=== PATIENT | male | born 1985 | race Caucasian/White ===

== ENCOUNTER 2017-10-23 18:14 | Inpatient (IN) | payer OTHER ==
--- NOTE | 2017-10-23 18:25 | ED Physician Chart ---
Addendum entered and electronically signed by Jadiel Bai 10/24/17 14:29: ED Reassessment (Disposition) - Reassessment Reassessment Condition:: Improved - Aftercare/Follow up Instructions Aftercare/Follow-Up Instructions:: Counseled pt regarding lab results/diagnosis & need follow up, Counseled pt & family regarding lab results/diagnosis & need follow up - Patient Disposition Discharge/Transfer:: Acute Care w/in this hosp Accepting Physician:: Dr. Mendiola Time Called:: 1200 Time Responded:: 12:00 Admitted to:: Telemetry Spoke to:: Dr. Mendiola Admitting Medical Physician:: Dr. Mendiola Condition at Disposition:: Stable, Improved Addendum entered and electronically signed by Jadiel Bai 10/24/17 14:06: ED Labs/Radiology/EKG Results - Lab Results Results: Laboratory Tests 10/23/17 10/23/17 10/23/17 18:35 18:35 18:35 WBC 2.6 L RBC 4.40 Hgb 13.8 Hct 40.2 L MCV 91.3 MCH 31.3 H MCHC Differential 34.3 RDW 14.1 Plt Count 44 L MPV 8.7 Band Neutrophils % 1 Neutrophils (Manual) 52 Lymphocytes 34 Monocytes 12 H Eosinophils 0 Basophils 1 Platelet Estimate PT 10.9 INR 1.05 Sodium 136 Potassium 3.7 Chloride 100 Carbon Dioxide 20.5 L Anion Gap 19.2 H BUN 4 L Creatinine 0.6 L Est GFR ( Amer) > 60.0 Est GFR (Non-Af Amer) > 60.0 BUN/Creatinine Ratio 6.7 Glucose 114 H Whole Bld Lactic Acid Calcium 8.9 Total Bilirubin 1.1 H AST 221 H ALT 74 H Alkaline Phosphatase 78 Creatine Kinase 1091 H CK-MB (CK-2) 13.6 H Troponin I B-Natriuretic Peptide Total Protein 8.4 H Albumin 4.7 Globulin 3.7 Albumin/Globulin Ratio 1.3 Triglycerides 69 Cholesterol 236 H LDL Cholesterol Direct 131 HDL Cholesterol 89 Amylase 42 Lipase 38 Urine Source Urine Color Urine Clarity Urine pH Ur Specific [place] Urine Protein Urine Glucose (UA) Urine Ketones Urine Blood Urine Nitrate Urine Bilirubin Urine Urobilinogen Ur Leukocyte Esterase Urine RBC Urine WBC Ur Epithelial Cells Urine Bacteria Urine Opiates Screen Urine Methadone Screen Ur Barbiturates Screen Ur Tricyclics Screen Ur Phencyclidine Scrn Amphetamines Screen U Methamphetamines Scrn U Benzodiazepines Scrn U Cocaine Metab Screen U Cannabinoids Screen Ethyl Alcohol 625 H 10/23/17 10/23/17 10/23/17 18:35 18:35 18:35 WBC RBC Hgb Hct MCV MCH MCHC Differential RDW Plt Count MPV Band Neutrophils % Neutrophils (Manual) Lymphocytes Monocytes Eosinophils Basophils Platelet Estimate PT INR Sodium Potassium Chloride Carbon Dioxide Anion Gap BUN Creatinine Est GFR ( Amer) Est GFR (Non-Af Amer) BUN/Creatinine Ratio Glucose Whole Bld Lactic Acid 2.97 H* Calcium Total Bilirubin AST ALT Alkaline Phosphatase Creatine Kinase CK-MB (CK-2) Troponin I 0.01 B-Natriuretic Peptide < 5.0 L Total Protein Albumin Globulin Albumin/Globulin Ratio Triglycerides Cholesterol LDL Cholesterol Direct HDL Cholesterol Amylase Lipase Urine Source Urine Color Urine Clarity Urine pH Ur Specific [place] Urine Protein Urine Glucose (UA) Urine Ketones Urine Blood Urine Nitrate Urine Bilirubin Urine Urobilinogen Ur Leukocyte Esterase Urine RBC Urine WBC Ur Epithelial Cells Urine Bacteria Urine Opiates Screen Urine Methadone Screen Ur Barbiturates Screen Ur Tricyclics Screen Ur Phencyclidine Scrn Amphetamines Screen U Methamphetamines Scrn U Benzodiazepines Scrn U Cocaine Metab Screen U Cannabinoids Screen Ethyl Alcohol 10/23/17 10/23/17 10/23/17 19:00 19:00 21:35 WBC RBC Hgb Hct MCV MCH MCHC Differential RDW Plt Count MPV Band Neutrophils % Neutrophils (Manual) Lymphocytes Monocytes Eosinophils Basophils Platelet Estimate PT INR Sodium Potassium Chloride Carbon Dioxide Anion Gap BUN Creatinine Est GFR ( Amer) Est GFR (Non-Af Amer) BUN/Creatinine Ratio Glucose Whole Bld Lactic Acid 2.05 H* Calcium Total Bilirubin AST ALT Alkaline Phosphatase Creatine Kinase CK-MB (CK-2) Troponin I B-Natriuretic Peptide Total Protein Albumin Globulin Albumin/Globulin Ratio Triglycerides Cholesterol LDL Cholesterol Direct HDL Cholesterol Amylase Lipase Urine Source CLEAN C Urine Color YELLOW Urine Clarity CLEAR Urine pH 6.5 Ur Specific [place] <= 1.005 Urine Protein 30 H Urine Glucose (UA) NEGATIVE Urine Ketones NEGATIVE Urine Blood SMALL H Urine Nitrate NEGATIVE Urine Bilirubin NEGATIVE Urine Urobilinogen 0.2 Ur Leukocyte Esterase NEGATIVE Urine RBC 0-2 H Urine WBC 0-2 Ur Epithelial Cells OCCASIONAL Urine Bacteria NONE SEEN Urine Opiates Screen NEGATIVE Urine Methadone Screen NEGATIVE Ur Barbiturates Screen NEGATIVE Ur Tricyclics Screen NEGATIVE Ur Phencyclidine Scrn NEGATIVE Amphetamines Screen NEGATIVE U Methamphetamines Scrn NEGATIVE U Benzodiazepines Scrn POSITIVE H U Cocaine Metab Screen NEGATIVE U Cannabinoids Screen NEGATIVE Ethyl Alcohol 10/23/17 10/24/17 23:10 06:16 WBC 2.2 L* RBC 4.39 Hgb 13.7 Hct 40.5 L MCV 92.2 MCH 31.3 H MCHC Differential 33.9 RDW 14.2 Plt Count 43 L MPV 7.7 Band Neutrophils % 2 Neutrophils (Manual) 45 Lymphocytes 41 Monocytes 10 Eosinophils 2 Basophils Platelet Estimate DECREASED PLATELETS PT INR Sodium Potassium Chloride Carbon Dioxide Anion Gap BUN Creatinine Est GFR ( Amer) Est GFR (Non-Af Amer) BUN/Creatinine Ratio Glucose Whole Bld Lactic Acid Calcium Total Bilirubin AST ALT Alkaline Phosphatase Creatine Kinase CK-MB (CK-2) Troponin I B-Natriuretic Peptide Total Protein Albumin Globulin Albumin/Globulin Ratio Triglycerides Cholesterol LDL Cholesterol Direct HDL Cholesterol Amylase Lipase Urine Source Urine Color Urine Clarity Urine pH Ur Specific [place] Urine Protein Urine Glucose (UA) Urine Ketones Urine Blood Urine Nitrate Urine Bilirubin Urine Urobilinogen Ur Leukocyte Esterase Urine RBC Urine WBC Ur Epithelial Cells Urine Bacteria Urine Opiates Screen Urine Methadone Screen Ur Barbiturates Screen Ur Tricyclics Screen Ur Phencyclidine Scrn Amphetamines Screen U Methamphetamines Scrn U Benzodiazepines Scrn U Cocaine Metab Screen U Cannabinoids Screen Ethyl Alcohol 360 H - EKG Interpretations EKG Time:: 19:49 Rate & Rhythm: 85; NSR Comments:: non-specific st-t changes Addendum entered and electronically signed by Jadiel Bai 10/24/17 13:16: ED Reassessment (Disposition) - Reassessment Reassessment Condition:: Improved - Diagnosis Diagnosis:: Alcohol Intoxication; Substance Abuse; Leukopenia; Sepsis; AMS; ALOC; Alcoholism Addendum entered and electronically signed by Jadiel Bai 10/24/17 13:15: ED Labs/Radiology/EKG Results - Lab Results Results: Laboratory Tests 10/23/17 10/23/17 10/23/17 18:35 18:35 18:35 WBC 2.6 L RBC 4.40 Hgb 13.8 Hct 40.2 L MCV 91.3 MCH 31.3 H MCHC Differential 34.3 RDW 14.1 Plt Count 44 L MPV 8.7 Band Neutrophils % 1 Neutrophils (Manual) 52 Lymphocytes 34 Monocytes 12 H Eosinophils 0 Basophils 1 Platelet Estimate PT 10.9 INR 1.05 Sodium 136 Potassium 3.7 Chloride 100 Carbon Dioxide 20.5 L Anion Gap 19.2 H BUN 4 L Creatinine 0.6 L Est GFR ( Amer) > 60.0 Est GFR (Non-Af Amer) > 60.0 BUN/Creatinine Ratio 6.7 Glucose 114 H Whole Bld Lactic Acid Calcium 8.9 Total Bilirubin 1.1 H AST 221 H ALT 74 H Alkaline Phosphatase 78 Creatine Kinase 1091 H CK-MB (CK-2) 13.6 H Troponin I B-Natriuretic Peptide Total Protein 8.4 H Albumin 4.7 Globulin 3.7 Albumin/Globulin Ratio 1.3 Triglycerides 69 Cholesterol 236 H LDL Cholesterol Direct 131 HDL Cholesterol 89 Amylase 42 Lipase 38 Urine Source Urine Color Urine Clarity Urine pH Ur Specific [place] Urine Protein Urine Glucose (UA) Urine Ketones Urine Blood Urine Nitrate Urine Bilirubin Urine Urobilinogen Ur Leukocyte Esterase Urine RBC Urine WBC Ur Epithelial Cells Urine Bacteria Urine Opiates Screen Urine Methadone Screen Ur Barbiturates Screen Ur Tricyclics Screen Ur Phencyclidine Scrn Amphetamines Screen U Methamphetamines Scrn U Benzodiazepines Scrn U Cocaine Metab Screen U Cannabinoids Screen Ethyl Alcohol 625 H 10/23/17 10/23/17 10/23/17 18:35 18:35 18:35 WBC RBC Hgb Hct MCV MCH MCHC Differential RDW Plt Count MPV Band Neutrophils % Neutrophils (Manual) Lymphocytes Monocytes Eosinophils Basophils Platelet Estimate PT INR Sodium Potassium Chloride Carbon Dioxide Anion Gap BUN Creatinine Est GFR ( Amer) Est GFR (Non-Af Amer) BUN/Creatinine Ratio Glucose Whole Bld Lactic Acid 2.97 H* Calcium Total Bilirubin AST ALT Alkaline Phosphatase Creatine Kinase CK-MB (CK-2) Troponin I 0.01 B-Natriuretic Peptide < 5.0 L Total Protein Albumin Globulin Albumin/Globulin Ratio Triglycerides Cholesterol LDL Cholesterol Direct HDL Cholesterol Amylase Lipase Urine Source Urine Color Urine Clarity Urine pH Ur Specific [place] Urine Protein Urine Glucose (UA) Urine Ketones Urine Blood Urine Nitrate Urine Bilirubin Urine Urobilinogen Ur Leukocyte Esterase Urine RBC Urine WBC Ur Epithelial Cells Urine Bacteria Urine Opiates Screen Urine Methadone Screen Ur Barbiturates Screen Ur Tricyclics Screen Ur Phencyclidine Scrn Amphetamines Screen U Methamphetamines Scrn U Benzodiazepines Scrn U Cocaine Metab Screen U Cannabinoids Screen Ethyl Alcohol 10/23/17 10/23/17 10/23/17 19:00 19:00 21:35 WBC RBC Hgb Hct MCV MCH MCHC Differential RDW Plt Count MPV Band Neutrophils % Neutrophils (Manual) Lymphocytes Monocytes Eosinophils Basophils Platelet Estimate PT INR Sodium Potassium Chloride Carbon Dioxide Anion Gap BUN Creatinine Est GFR ( Amer) Est GFR (Non-Af Amer) BUN/Creatinine Ratio Glucose Whole Bld Lactic Acid 2.05 H* Calcium Total Bilirubin AST ALT Alkaline Phosphatase Creatine Kinase CK-MB (CK-2) Troponin I B-Natriuretic Peptide Total Protein Albumin Globulin Albumin/Globulin Ratio Triglycerides Cholesterol LDL Cholesterol Direct HDL Cholesterol Amylase Lipase Urine Source CLEAN C Urine Color YELLOW Urine Clarity CLEAR Urine pH 6.5 Ur Specific [place] <= 1.005 Urine Protein 30 H Urine Glucose (UA) NEGATIVE Urine Ketones NEGATIVE Urine Blood SMALL H Urine Nitrate NEGATIVE Urine Bilirubin NEGATIVE Urine Urobilinogen 0.2 Ur Leukocyte Esterase NEGATIVE Urine RBC 0-2 H Urine WBC 0-2 Ur Epithelial Cells OCCASIONAL Urine Bacteria NONE SEEN Urine Opiates Screen NEGATIVE Urine Methadone Screen NEGATIVE Ur Barbiturates Screen NEGATIVE Ur Tricyclics Screen NEGATIVE Ur Phencyclidine Scrn NEGATIVE Amphetamines Screen NEGATIVE U Methamphetamines Scrn NEGATIVE U Benzodiazepines Scrn POSITIVE H U Cocaine Metab Screen NEGATIVE U Cannabinoids Screen NEGATIVE Ethyl Alcohol 10/23/17 10/24/17 23:10 06:16 WBC 2.2 L* RBC 4.39 Hgb 13.7 Hct 40.5 L MCV 92.2 MCH 31.3 H MCHC Differential 33.9 RDW 14.2 Plt Count 43 L MPV 7.7 Band Neutrophils % 2 Neutrophils (Manual) 45 Lymphocytes 41 Monocytes 10 Eosinophils 2 Basophils Platelet Estimate DECREASED PLATELETS PT INR Sodium Potassium Chloride Carbon Dioxide Anion Gap BUN Creatinine Est GFR ( Amer) Est GFR (Non-Af Amer) BUN/Creatinine Ratio Glucose Whole Bld Lactic Acid Calcium Total Bilirubin AST ALT Alkaline Phosphatase Creatine Kinase CK-MB (CK-2) Troponin I B-Natriuretic Peptide Total Protein Albumin Globulin Albumin/Globulin Ratio Triglycerides Cholesterol LDL Cholesterol Direct HDL Cholesterol Amylase Lipase Urine Source Urine Color Urine Clarity Urine pH Ur Specific [place] Urine Protein Urine Glucose (UA) Urine Ketones Urine Blood Urine Nitrate Urine Bilirubin Urine Urobilinogen Ur Leukocyte Esterase Urine RBC Urine WBC Ur Epithelial Cells Urine Bacteria Urine Opiates Screen Urine Methadone Screen Ur Barbiturates Screen Ur Tricyclics Screen Ur Phencyclidine Scrn Amphetamines Screen U Methamphetamines Scrn U Benzodiazepines Scrn U Cocaine Metab Screen U Cannabinoids Screen Ethyl Alcohol 360 H Comments:: ETOH: 625/360; WBC: 2.2; LA: elevated; Elevated LFTs; UDS: + Benzodiazepines Addendum entered and electronically signed by Jadiel Bai 10/24/17 13:09: ED Labs/Radiology/EKG Results - Lab Results Results: Laboratory Tests 10/23/17 10/23/17 10/23/17 18:35 18:35 18:35 WBC 2.6 L RBC 4.40 Hgb 13.8 Hct 40.2 L MCV 91.3 MCH 31.3 H MCHC Differential 34.3 RDW 14.1 Plt Count 44 L MPV 8.7 Band Neutrophils % 1 Neutrophils (Manual) 52 Lymphocytes 34 Monocytes 12 H Eosinophils 0 Basophils 1 Platelet Estimate PT 10.9 INR 1.05 Sodium 136 Potassium 3.7 Chloride 100 Carbon Dioxide 20.5 L Anion Gap 19.2 H BUN 4 L Creatinine 0.6 L Est GFR ( Amer) > 60.0 Est GFR (Non-Af Amer) > 60.0 BUN/Creatinine Ratio 6.7 Glucose 114 H Whole Bld Lactic Acid Calcium 8.9 Total Bilirubin 1.1 H AST 221 H ALT 74 H Alkaline Phosphatase 78 Creatine Kinase 1091 H CK-MB (CK-2) 13.6 H Troponin I B-Natriuretic Peptide Total Protein 8.4 H Albumin 4.7 Globulin 3.7 Albumin/Globulin Ratio 1.3 Triglycerides 69 Cholesterol 236 H LDL Cholesterol Direct 131 HDL Cholesterol 89 Amylase 42 Lipase 38 Urine Source Urine Color Urine Clarity Urine pH Ur Specific [place] Urine Protein Urine Glucose (UA) Urine Ketones Urine Blood Urine Nitrate Urine Bilirubin Urine Urobilinogen Ur Leukocyte Esterase Urine RBC Urine WBC Ur Epithelial Cells Urine Bacteria Urine Opiates Screen Urine Methadone Screen Ur Barbiturates Screen Ur Tricyclics Screen Ur Phencyclidine Scrn Amphetamines Screen U Methamphetamines Scrn U Benzodiazepines Scrn U Cocaine Metab Screen U Cannabinoids Screen Ethyl Alcohol 625 H 10/23/17 10/23/17 10/23/17 18:35 18:35 18:35 WBC RBC Hgb Hct MCV MCH MCHC Differential RDW Plt Count MPV Band Neutrophils % Neutrophils (Manual) Lymphocytes Monocytes Eosinophils Basophils Platelet Estimate PT INR Sodium Potassium Chloride Carbon Dioxide Anion Gap BUN Creatinine Est GFR ( Amer) Est GFR (Non-Af Amer) BUN/Creatinine Ratio Glucose Whole Bld Lactic Acid 2.97 H* Calcium Total Bilirubin AST ALT Alkaline Phosphatase Creatine Kinase CK-MB (CK-2) Troponin I 0.01 B-Natriuretic Peptide < 5.0 L Total Protein Albumin Globulin Albumin/Globulin Ratio Triglycerides Cholesterol LDL Cholesterol Direct HDL Cholesterol Amylase Lipase Urine Source Urine Color Urine Clarity Urine pH Ur Specific [place] Urine Protein Urine Glucose (UA) Urine Ketones Urine Blood Urine Nitrate Urine Bilirubin Urine Urobilinogen Ur Leukocyte Esterase Urine RBC Urine WBC Ur Epithelial Cells Urine Bacteria Urine Opiates Screen Urine Methadone Screen Ur Barbiturates Screen Ur Tricyclics Screen Ur Phencyclidine Scrn Amphetamines Screen U Methamphetamines Scrn U Benzodiazepines Scrn U Cocaine Metab Screen U Cannabinoids Screen Ethyl Alcohol 10/23/17 10/23/17 10/23/17 19:00 19:00 21:35 WBC RBC Hgb Hct MCV MCH MCHC Differential RDW Plt Count MPV Band Neutrophils % Neutrophils (Manual) Lymphocytes Monocytes Eosinophils Basophils Platelet Estimate PT INR Sodium Potassium Chloride Carbon Dioxide Anion Gap BUN Creatinine Est GFR ( Amer) Est GFR (Non-Af Amer) BUN/Creatinine Ratio Glucose Whole Bld Lactic Acid 2.05 H* Calcium Total Bilirubin AST ALT Alkaline Phosphatase Creatine Kinase CK-MB (CK-2) Troponin I B-Natriuretic Peptide Total Protein Albumin Globulin Albumin/Globulin Ratio Triglycerides Cholesterol LDL Cholesterol Direct HDL Cholesterol Amylase Lipase Urine Source CLEAN C Urine Color YELLOW Urine Clarity CLEAR Urine pH 6.5 Ur Specific [place] <= 1.005 Urine Protein 30 H Urine Glucose (UA) NEGATIVE Urine Ketones NEGATIVE Urine Blood SMALL H Urine Nitrate NEGATIVE Urine Bilirubin NEGATIVE Urine Urobilinogen 0.2 Ur Leukocyte Esterase NEGATIVE Urine RBC 0-2 H Urine WBC 0-2 Ur Epithelial Cells OCCASIONAL Urine Bacteria NONE SEEN Urine Opiates Screen NEGATIVE Urine Methadone Screen NEGATIVE Ur Barbiturates Screen NEGATIVE Ur Tricyclics Screen NEGATIVE Ur Phencyclidine Scrn NEGATIVE Amphetamines Screen NEGATIVE U Methamphetamines Scrn NEGATIVE U Benzodiazepines Scrn POSITIVE H U Cocaine Metab Screen NEGATIVE U Cannabinoids Screen NEGATIVE Ethyl Alcohol 10/23/17 10/24/17 23:10 06:16 WBC 2.2 L* RBC 4.39 Hgb 13.7 Hct 40.5 L MCV 92.2 MCH 31.3 H MCHC Differential 33.9 RDW 14.2 Plt Count 43 L MPV 7.7 Band Neutrophils % 2 Neutrophils (Manual) 45 Lymphocytes 41 Monocytes 10 Eosinophils 2 Basophils Platelet Estimate DECREASED PLATELETS PT INR Sodium Potassium Chloride Carbon Dioxide Anion Gap BUN Creatinine Est GFR ( Amer) Est GFR (Non-Af Amer) BUN/Creatinine Ratio Glucose Whole Bld Lactic Acid Calcium Total Bilirubin AST ALT Alkaline Phosphatase Creatine Kinase CK-MB (CK-2) Troponin I B-Natriuretic Peptide Total Protein Albumin Globulin Albumin/Globulin Ratio Triglycerides Cholesterol LDL Cholesterol Direct HDL Cholesterol Amylase Lipase Urine Source Urine Color Urine Clarity Urine pH Ur Specific [place] Urine Protein Urine Glucose (UA) Urine Ketones Urine Blood Urine Nitrate Urine Bilirubin Urine Urobilinogen Ur Leukocyte Esterase Urine RBC Urine WBC Ur Epithelial Cells Urine Bacteria Urine Opiates Screen Urine Methadone Screen Ur Barbiturates Screen Ur Tricyclics Screen Ur Phencyclidine Scrn Amphetamines Screen U Methamphetamines Scrn U Benzodiazepines Scrn U Cocaine Metab Screen U Cannabinoids Screen Ethyl Alcohol 360 H - Radiology Results Comments:: NAD; no acute Fx/Dislocations Original Note: ED Chief Complaint/HPI - Patient Information Date Seen:: 10/23/17 Time Seen:: 18:10 Chief Complaint:: AMS History of Present Illness:: onset x 3 hours of AMS and ALOC; [place] Police who called EMS to take pt to ER; pt admits to Abdominal Pain; no report of H/As, LOC , S/T, neck pain, cough, C/P, SOB, A/N/V/D/C, fever, chills, or urinary s/s Allergies:: Allergies Allergy/AdvReac Type Severity Reaction Status Date / Time No Known Allergies Allergy Verified 05/24/16 23:27 Historian:: Patient, EMS Review:: Nurse's Note Reviewed, Old Chart Reviewed, EMS run form Reviewed <Jadiel Bai - Last Filed: 10/24/17 14:28> - Patient Information History of Present Illness:: Patient was noticed to have right hand pain with swelling and numbness on the dorsal side. Patient also had trouble flexing first 3 digits. Allergies:: Allergies Allergy/AdvReac Type Severity Reaction Status Date / Time No Known Allergies Allergy Verified 05/24/16 23:27 <Demetrio Dunn - Last Filed: 10/24/17 14:37> ED Review of Systems - Review of Systems General/Constitutional: No fever, No chills, No weight loss, Weakness, No diaphoresis, No edema, No loss of appetite Skin: No skin lesions, No rash, No bruising Head: No headache, No light-headedness Eyes: No loss of vision, No pain, No diplopia ENT: No earache, No nasal drainage, No sore throat, No tinnitus Neck: No neck pain, No swelling, No thyromegaly, No stiffness, No mass noted Cardio Vascular: No chest pain, No palpitations, No PND, No orthopnea, No edema Pulmonary: No SOB, No cough, No sputum, No wheezing GI: No nausea, No vomiting, No diarrhea, No pain, No melena, No hematochezia, No constipation, No hematemesis G/U: No dysuria, No frequency, No hematuria, No nacturia Musculoskeletal: No bone or joint pain, No back pain, No muscle pain Endocrine: No polyuria, No polydipsia Psychiatric: No prior psych history, No depression, No anxiety, No suicidal ideation, No homicidal ideation, No auditory hallucination, No visual hallucination Hematopoietic: No bruising, No lymphadenopathy Allergic/Immuno: No urticaria, No angioedema Neurological: No syncope, No focal symptoms, Weakness, No paresthesia, No headache, No seizure, No dizziness, Confusion, No vertigo <Jadiel Bai - Last Filed: 10/24/17 14:28> ED Past Medical History - Past Medical History Obtainable: Yes Past Medical History: No significant medical hx Family History: HTN Social History: Smoker, Alcohol, No Drug Use, Single Surgical History: None Psychiatricy History: None Medication: Reviewed <Jadiel Bai - Last Filed: 10/24/17 14:28> Family Medical History - Family Member Mother History Unknown: Yes <Jadiel Bai Last Filed: 10/24/17 14:28> ED Physical Exam - Physical Examination General/Constitutional: Awake, Well-developed, well-nourished, Alert, No distress, GCS 15, Non-toxic appearing, Ambulatory Head: Atraumatic Eyes: Lids, conjuctiva normal, PERRL, EOMI Skin: Nl inspection, No rash, No skin lesions, No ecchymosis, Well hydrated, No lymphadenopathy ENMT: External ears, nose nl, TM canals nl, Nasal exam nl, Lips, teeth, gums nl , Oropharynx nl, Tonsils nl Neck: Nontender, Full ROM w/o pain, No JVD, No nuchal rigidity, No bruit, No mass, No stridor Respiratory: Nl effort/Exclusion, Clear to Auscultation, No Wheeze/Rhonchi/Rales Cardio Vascular: RRR, No murmur, gallop, rubs, NL S1 S2, Carotid/Femoral/Distal pulses equal bilaterally GI: No tenderness/rebounding/guarding, No organomegaly, No hernia, Normal BS's, Nondistended, No mass/bruits, No McBurney tenderness Other GI comments:: no pulsatile masses; good BS : No CVA tenderness Extremities: No tenderness or effusion, Full ROM, normal strength in all extremities, No edema, Normal digits & nails Neuro/Psych: Alert/oriented, DTR's symmetric, Normal sensory exam, Normal motor strength, Judgement/insight normal, Mood normal, Normal gait, No focal deficits Misc: Normal back, No paraspinal tenderness <Jadiel Bai - Last Filed: 10/24/17 14:28> ED Labs/Radiology/EKG Results - Lab Results Results: Laboratory Tests 10/23/17 10/23/17 10/23/17 18:35 18:35 18:35 WBC 2.6 L RBC 4.40 Hgb 13.8 Hct 40.2 L MCV 91.3 MCH 31.3 H MCHC Differential 34.3 RDW 14.1 Plt Count 44 L MPV 8.7 Band Neutrophils % 1 Neutrophils (Manual) 52 Lymphocytes 34 Monocytes 12 H Eosinophils 0 Basophils 1 Platelet Estimate PT 10.9 INR 1.05 Sodium 136 Potassium 3.7 Chloride 100 Carbon Dioxide 20.5 L Anion Gap 19.2 H BUN 4 L Creatinine 0.6 L Est GFR ( Amer) > 60.0 Est GFR (Non-Af Amer) > 60.0 BUN/Creatinine Ratio 6.7 Glucose 114 H Whole Bld Lactic Acid Calcium 8.9 Total Bilirubin 1.1 H AST 221 H ALT 74 H Alkaline Phosphatase 78 Creatine Kinase 1091 H CK-MB (CK-2) 13.6 H Troponin I B-Natriuretic Peptide Total Protein 8.4 H Albumin 4.7 Globulin 3.7 Albumin/Globulin Ratio 1.3 Triglycerides 69 Cholesterol 236 H LDL Cholesterol Direct 131 HDL Cholesterol 89 Amylase 42 Lipase 38 Urine Source Urine Color Urine Clarity Urine pH Ur Specific [place] Urine Protein Urine Glucose (UA) Urine Ketones Urine Blood Urine Nitrate Urine Bilirubin Urine Urobilinogen Ur Leukocyte Esterase Urine RBC Urine WBC Ur Epithelial Cells Urine Bacteria Urine Opiates Screen Urine Methadone Screen Ur Barbiturates Screen Ur Tricyclics Screen Ur Phencyclidine Scrn Amphetamines Screen U Methamphetamines Scrn U Benzodiazepines Scrn U Cocaine Metab Screen U Cannabinoids Screen Ethyl Alcohol 625 H 10/23/17 10/23/17 10/23/17 18:35 18:35 18:35 WBC RBC Hgb Hct MCV MCH MCHC Differential RDW Plt Count MPV Band Neutrophils % Neutrophils (Manual) Lymphocytes Monocytes Eosinophils Basophils Platelet Estimate PT INR Sodium Potassium Chloride Carbon Dioxide Anion Gap BUN Creatinine Est GFR ( Amer) Est GFR (Non-Af Amer) BUN/Creatinine Ratio Glucose Whole Bld Lactic Acid 2.97 H* Calcium Total Bilirubin AST ALT Alkaline Phosphatase Creatine Kinase CK-MB (CK-2) Troponin I 0.01 B-Natriuretic Peptide < 5.0 L Total Protein Albumin Globulin Albumin/Globulin Ratio Triglycerides Cholesterol LDL Cholesterol Direct HDL Cholesterol Amylase Lipase Urine Source Urine Color Urine Clarity Urine pH Ur Specific [place] Urine Protein Urine Glucose (UA) Urine Ketones Urine Blood Urine Nitrate Urine Bilirubin Urine Urobilinogen Ur Leukocyte Esterase Urine RBC Urine WBC Ur Epithelial Cells Urine Bacteria Urine Opiates Screen Urine Methadone Screen Ur Barbiturates Screen Ur Tricyclics Screen Ur Phencyclidine Scrn Amphetamines Screen U Methamphetamines Scrn U Benzodiazepines Scrn U Cocaine Metab Screen U Cannabinoids Screen Ethyl Alcohol 10/23/17 10/23/17 10/23/17 19:00 19:00 21:35 WBC RBC Hgb Hct MCV MCH MCHC Differential RDW Plt Count MPV Band Neutrophils % Neutrophils (Manual) Lymphocytes Monocytes Eosinophils Basophils Platelet Estimate PT INR Sodium Potassium Chloride Carbon Dioxide Anion Gap BUN Creatinine Est GFR ( Amer) Est GFR (Non-Af Amer) BUN/Creatinine Ratio Glucose Whole Bld Lactic Acid 2.05 H* Calcium Total Bilirubin AST ALT Alkaline Phosphatase Creatine Kinase CK-MB (CK-2) Troponin I B-Natriuretic Peptide Total Protein Albumin Globulin Albumin/Globulin Ratio Triglycerides Cholesterol LDL Cholesterol Direct HDL Cholesterol Amylase Lipase Urine Source CLEAN C Urine Color YELLOW Urine Clarity CLEAR Urine pH 6.5 Ur Specific [place] <= 1.005 Urine Protein 30 H Urine Glucose (UA) NEGATIVE Urine Ketones NEGATIVE Urine Blood SMALL H Urine Nitrate NEGATIVE Urine Bilirubin NEGATIVE Urine Urobilinogen 0.2 Ur Leukocyte Esterase NEGATIVE Urine RBC 0-2 H Urine WBC 0-2 Ur Epithelial Cells OCCASIONAL Urine Bacteria NONE SEEN Urine Opiates Screen NEGATIVE Urine Methadone Screen NEGATIVE Ur Barbiturates Screen NEGATIVE Ur Tricyclics Screen NEGATIVE Ur Phencyclidine Scrn NEGATIVE Amphetamines Screen NEGATIVE U Methamphetamines Scrn NEGATIVE U Benzodiazepines Scrn POSITIVE H U Cocaine Metab Screen NEGATIVE U Cannabinoids Screen NEGATIVE Ethyl Alcohol 10/23/17 23:10 WBC 2.2 L* RBC 4.39 Hgb 13.7 Hct 40.5 L MCV 92.2 MCH 31.3 H MCHC Differential 33.9 RDW 14.2 Plt Count 43 L MPV 7.7 Band Neutrophils % 2 Neutrophils (Manual) 45 Lymphocytes 41 Monocytes 10 Eosinophils 2 Basophils Platelet Estimate DECREASED PLATELETS PT INR Sodium Potassium Chloride Carbon Dioxide Anion Gap BUN Creatinine Est GFR ( Amer) Est GFR (Non-Af Amer) BUN/Creatinine Ratio Glucose Whole Bld Lactic Acid Calcium Total Bilirubin AST ALT Alkaline Phosphatase Creatine Kinase CK-MB (CK-2) Troponin I B-Natriuretic Peptide Total Protein Albumin Globulin Albumin/Globulin Ratio Triglycerides Cholesterol LDL Cholesterol Direct HDL Cholesterol Amylase Lipase Urine Source Urine Color Urine Clarity Urine pH Ur Specific [place] Urine Protein Urine Glucose (UA) Urine Ketones Urine Blood Urine Nitrate Urine Bilirubin Urine Urobilinogen Ur Leukocyte Esterase Urine RBC Urine WBC Ur Epithelial Cells Urine Bacteria Urine Opiates Screen Urine Methadone Screen Ur Barbiturates Screen Ur Tricyclics Screen Ur Phencyclidine Scrn Amphetamines Screen U Methamphetamines Scrn U Benzodiazepines Scrn U Cocaine Metab Screen U Cannabinoids Screen Ethyl Alcohol - Radiology Results Results: Right hand X ray: no fracture <Demetrio Dunn - Last Filed: 10/24/17 14:37> ED Assessment - Assessment General Assessment: Due to leukopenia and elevated lactic acid despite NS 2L IV bolus, empirical Levofloxacin 750mg IV was given. Repeat ETOH level remained high. Patient was not safe for discharge. Dr. Bai resumed care on 10/24/17 at 07:00 Assessment/Comments:: Right hand X ray <Demetrio Dunn - Last Filed: 10/24/17 14:37> ED Septic Shock - . Is Septic Shock (SBP<90, OR Lactate>4 mmol\L) present?: No <Jadiel Bai - Last Filed: 10/24/17 14:28> ED Discharge Plan <Jadiel Bai - Last Filed: 10/24/17 14:28> <Demetrio Dunn - Last Filed: 10/24/17 14:37> - Patient Disposition Instructions: Alcohol Intoxication, [id number], Contusion, [id number]
[2017-10-23] MEDS ORDERED: Sodium Chloride 0.9% 1,000 ML IV ONE ×2 (18:26→21:37)
[2017-10-23 18:45] LABS: HEMOGLOBIN 13.8 gm/dL (12-16)
[2017-10-23 18:57] LABS: INR 1.05 (0.5-1.4); PROTHROMBIN TIME (TEST) 10.9 SECONDS (9.5-11.5)
[2017-10-23 19:11] LABS: HEMATOCRIT 40.2 % (41.0-60); MEAN CELL VOLUME 91.3 fl (80-99); MEAN CORPUSCULAR HEMOGLOBIN 31.3 pg (26.0-30.0); MEAN CORPUSCULAR HGB CONC 34.3 pg (28.0-36.0); MEAN PLATELET VOLUME 8.7 fl; PLATELET COUNT 44 Th/cmm (150-400); RED CELL DISTRIBUTION WIDTH 14.1 % (11.5-20.0)
[2017-10-23 19:21] LABS: ALB/GLOB RATIO 1.3 (1.0-1.8); ALBUMIN 4.7 gm/dL (4.2-5.5); ALKALINE PHOSPHATASE 78 U/L (34-104); AMYLASE SERUM 42 U/L (29-103); ANION GAP 19.2 (7.0-16.0); BILIRUBIN,TOTAL 1.1 mg/dL (0.3-1.0); BUN - UREA NITROGEN 4 mg/dL (7-25); CALCIUM SERUM 8.9 mg/dL (8.6-10.3); CARBON DIOXIDE 20.5 mEq/L (21.0-31.0); CHLORIDE 100 mEq/L (98-107); CHOLESTEROL 236 mg/dL (<200); CREATININE - SERUM 0.6 mg/dL (0.7-1.3); CREATININE KINASE 1091 U/L (30-223); GFR AFRICAN-AMERICAN > 60.0 ml/min (>90); GFR NON AFRICAN-AMERICAN > 60.0 ml/min; GLUCOSE 114 mg/dL (70-105); HDL -HIGH DENSITY LIPOPROTEIN 89 mg/dL (23-92); LIPASE 38 U/L (11-82); POTASSIUM SERUM 3.7 mEq/L (3.5-5.1); SGOT 221 U/L (13-39); SGPT/ALT 74 U/L (7-52); SODIUM SERUM 136 mEq/L (136-145); TOTAL PROTEIN,SERUM 8.4 gm/dL (6.0-8.3); TRIGLYCERIDES 69 mg/dL (<150)
[2017-10-23 19:31] LABS: MANUAL DIFF REQUIRED? YES; WHITE BLOOD COUNT 2.6 Th/cmm (4.8-10.8)
[2017-10-23 19:57] LABS: BAND NEUTROPHILE 1 % (0-10); BASOPHIL 1 % (0-3); EOSINOPHIL 0 % (0-5); LYMPHOCYTE 34 % (20-50); MONOCYTE 12 % (2-10); NEUTROPHILS 52 % (40-80); TOTAL CELLS COUNTED 100
[2017-10-23 20:20] LABS: URINE MICROSCOPIC INDICATED? YES; URINE SOURCE CLEAN C
[2017-10-23 20:49] LABS: AMPHETAMINE URINE NEGATIVE (NEGATIVE); BARBITURATES URINE NEGATIVE (NEGATIVE); BENZODIAZEPINES QUAL URINE POSITIVE (NEGATIVE); CANNABINOID THC NEGATIVE (NEGATIVE); COCAINE METABOLITE QUAL URINE NEGATIVE (NEGATIVE); METHADONE URINE NEGATIVE (NEGATIVE); METHAMPHETAMINES QUAL URINE NEGATIVE (NEGATIVE); OPIATES (MORPHINE) QUAL. URINE NEGATIVE (NEGATIVE); PHENCYCLIDINE (PCP) URINE NEGATIVE (NEGATIVE); TRICYCLICS (TCA) QUAL. URINE NEGATIVE (NEGATIVE)
[2017-10-23 21:00] LABS: URINE BILIRUBIN NEGATIVE (NEGATIVE); URINE BLOOD SMALL (NEGATIVE); URINE GLUCOSE (UA) NEGATIVE (NEGATIVE); URINE KETONE NEGATIVE (NEGATIVE); URINE LEUKOCYTE ESTERASE NEGATIVE (NEGATIVE); URINE NITRATE NEGATIVE (NEGATIVE); URINE PH 6.5 (4.6 - 8.0); URINE PROTEIN 30 mg/dL (NEGATIVE); URINE UROBILINOGEN 0.2 E.U./dL (0.2 - 1.0)
[2017-10-23 21:01] LABS: URINE CLARITY CLEAR (CLEAR); URINE COLOR YELLOW
[2017-10-23 21:05] LABS: URINE RBC 0-2 /hpf (0-5); URINE WBC 0-2 /hpf (0-5)
[2017-10-23 21:06] LABS: URINE BACTERIA NONE SEEN /hpf (NONE SEEN); URINE EPITHELIAL CELLS OCCASIONAL /lpf (FEW)
[2017-10-23 23:22] LABS: HEMATOCRIT 40.5 % (41.0-60); HEMOGLOBIN 13.7 gm/dL (12-16); MANUAL DIFF REQUIRED? YES; MEAN CELL VOLUME 92.2 fl (80-99); MEAN CORPUSCULAR HEMOGLOBIN 31.3 pg (26.0-30.0); MEAN CORPUSCULAR HGB CONC 33.9 pg (28.0-36.0); MEAN PLATELET VOLUME 7.7 fl; PLATELET COUNT 43 Th/cmm (150-400); RED BLOOD COUNT 4.39 Mil/cmm (4.30-5.70); RED CELL DISTRIBUTION WIDTH 14.2 % (11.5-20.0)
[2017-10-23 23:34] LABS: WHITE BLOOD COUNT 2.2 Th/cmm (4.8-10.8)
[2017-10-23] MEDS ORDERED: Levofloxacin 750mg/150mL 750 MG/150 ML BAG IV ONE ×2 (23:45→23:50)
[2017-10-24 04:41] LABS: BAND NEUTROPHILE 2 % (0-10); EOSINOPHIL 2 % (0-5); LYMPHOCYTE 41 % (20-50); MONOCYTE 10 % (2-10); NEUTROPHILS 45 % (40-80); PLATELET ESTIMATE DECREASED PLATELETS (NORMAL); TOTAL CELLS COUNTED 100
[2017-10-24] MEDS ORDERED: Multivitamin Inj 10 ML, Thiamine HCL 100 MG, Magnesium Sulfate 2 GM, Folic Acid 1 MG in... IV ONE (09:30)
--- NOTE | 2017-10-24 13:30 | Diagnostic Imaging Report ---
Right hand (3 views) HISTORY: Pain Normal bone density. There is slight subluxation involving the first metacarpal phalangeal joint. Cystic changes noted in the head of the first metacarpal consistent with degenerative change. No fractures. IMPRESSION: 1. Subluxation about the first metacarpal phalangeal joint along with degenerative changes. 2. No acute focal bony abnormalities In the presence of recent trauma and persistent symptoms, a repeat radiograph in 5-7 days may be helpful for detection of a subtle or occult fracture.
--- NOTE | 2017-10-24 13:33 | Diagnostic Imaging Report ---
CT scan of the brain without intravenous contrast HISTORY: Stroke, CVA Total DLP equals 779 CTDI equals 41.4 Axial sections were obtained to the base of the skull to the vertex. There is a normal ventricular system size. There is enlargement cerebral sulci and subarachnoid cisterns. The findings reflect a degree of cerebral atrophy that is somewhat pronounced for the patient's age. No acute parenchymal abnormalities. No intracerebral hemorrhage. No mass effect or shift of midline structures. No extra-axial masses or abnormal fluid collections. IMPRESSION: 1. No acute abnormalities 2. Cerebral atrophy somewhat pronounced for the patient's age. Changes should be correlated clinically.
--- NOTE | 2017-10-24 13:36 | Diagnostic Imaging Report ---
CT scan cervical spine HISTORY: Pain Total DLP equals 495 CTDI equals 27.5 Axial sections were obtained through the cervical spine. Additional sagittal and coronal reformatted images are provided. There is reversal of the cervical lordosis that may be associated with spasm or simply related to positioning. Degenerative changes noted at the C5-6 level with slight narrowing of the interspace. Small spur formation seen about the vertebral endplates. There is a mild to moderate (2 3-mm)-disc protrusion associated calcification within the disc annulus resulting in the corresponding indentation on the anterior spinal canal. No other focal lesions. No fractures. The prevertebral soft tissues appear normal. IMPRESSION: 1. Degenerative changes C5-6 associated with a mild to moderate central disc protrusion as noted above. 2. No acute abnormalities
--- NOTE | 2017-10-24 13:38 | Diagnostic Imaging Report ---
CT scan abdomen and pelvis without intravenous contrast HISTORY: Pain Total DLP equals 470 CTDI equals 9.1 Axial sections were obtained from the xiphoid process down to the pubic symphysis. The liver demonstrates enlargement of the left lobe. There is a generalized decrease in hepatic parenchymal density consistent with fatty infiltration. The findings should be correlated with liver function tests. No focal lesions. The spleen appears normal. There is a moderately distended debris-filled stomach. No abnormality seen in the region of the pancreas. No focal renal lesions. No abnormality seen in the region of the appendix. The exam of the pelvis demonstrates preservation of normal fat planes. No abnormal soft tissue masses or abnormal fluid collections. IMPRESSION: 1. Hepatomegaly along with changes consistent with fatty infiltration. The finding should be correlated with liver function tests. 2. Moderately distended debris-filled stomach. The significance should be correlated clinically.
[2017-10-24 20:00] VITALS: BP 125/69
[2017-10-24] MEDS: D5-0.45NS 1,000 ML IV SCH (20:13)
[2017-10-24] MEDS: Levofloxacin 500mg/100mL 500 MG/100 ML BAG IV SCH (22:20)
[2017-10-24] MEDS ORDERED: Thiamine 100 mg/mL 2mL Vial ONE (22:26)
[2017-10-24] MEDS ORDERED: Multivitamin Inj 10 mL Vial IV ONE (22:27)
[2017-10-24] MEDS: Multivitamin Inj 10 ML, Thiamine HCL 100 MG, Magnesium Sulfate 2 GM, Folic Acid 1 MG in... IV SCH (23:24)
--- NOTE | 2017-10-25 01:52 | Consultation ---
DATE OF CONSULTATION: 10/24/2017 INFECTIOUS DISEASE CONSULTATION REFERRING PHYSICIAN: Dr. Mendiola. REASON FOR CONSULTATION: Neutropenia. HISTORY OF PRESENT ILLNESS: The patient is a 32-year-old male with a past medical history of alcoholic liver cirrhosis, presented to ER with right hand pain and swelling and numbness of the dorsal hand. He has trouble flexing his first digit. On initial evaluation, he was afebrile and WBC count was 2600. On repeated exam, his WBC count went up to 2200. ID consult was called for further antibiotic management. The patient's alcohol level was also high, CPK was also high. The patient is receiving IV fluid and banana bag. PAST MEDICAL HISTORY: Alcohol abuse. ALLERGIES: NKDA. MEDICATIONS: As per medication reconciliation sheet. Antibiotic reyes, the patient is on Levaquin. REVIEW OF SYSTEMS: GENERAL: The patient has no fever, no chills. HEENT: No diplopia, no photophobia, no sore throat. RESPIRATORY: No cough, no shortness of breath. CARDIOVASCULAR: No chest pain or palpitation. GASTROINTESTINAL: No nausea, no vomiting, no diarrhea, no constipation. GENITOURINARY: No dysuria. NEUROLOGIC: The patient complains of tremor. No headache, no dizziness. The patient also complains of body pain. PHYSICAL EXAMINATION: CURRENT VITAL SIGNS: Show temperature is 99.3, pulse is 78, respiration is 16, blood pressure 127/85. GENERAL: The patient is comfortable, lying in the bed, not in acute distress. HEENT: Head is normocephalic, atraumatic. Oral cavity moist. [place] tongue. Eyes: No pallor, no icterus. PERRLA, EOMI. NECK: Supple, no JVD, no bruit. Trachea is midline. CHEST: Bilateral breath sounds. No crackles or wheezing. HEART: S1, S2 within normal limits. Regular rhythm. No murmur or gallop. ABDOMEN: Soft, nontender, nondistended. Bowel sounds present. EXTREMITIES: No cyanosis, no clubbing, no edema. NEUROLOGIC: Alert, awake, oriented x 3, anxious. LABORATORY DATA: Current lab shows WBC count 2200, hemoglobin 13.7, hematocrit 40.5, platelets are 43,000, neutrophil is 45% and lymphocytes 41%. Sodium 136, potassium 3.7, chloride 100, bicarbonate is 20.5, BUN is 4, creatinine 0.6, glucose 114. Lactic acid 2.9-1 and repeat lactic acid 2.05. AST 221, ALT 74, alkaline phosphatase 78. CPK is 1091. Urinalysis; negative nitrite, negative leukocyte esterase, wbcs 0-2. A urine tox screen is positive for benzodiazepine. Ethyl alcohol level was 625, now it is 185. IMPRESSION: 1. Neutropenia, most likely secondary to cirrhosis. 2. Thrombocytopenia secondary to the cirrhosis. 3. Alcohol intoxication and alcohol abuse. 4. Hepatomegaly, likely secondary to cirrhosis. 5. Anxiety disorder. RECOMMENDATIONS: Continue Librium and banana bag. IV fluid support. Hematology consultation. Otherwise, no active issues from ID point of view. Thank you, Dr. Mendiola, for involving me in taking care of this patient. JOB# [id number]
[2017-10-25 07:32] LABS: HEMATOCRIT 39.8 % (41.0-60); HEMOGLOBIN 13.4 gm/dL (12-16); LYMPHOCYTE ABSOLUTE 0.4 Th/cmm (1.5-3.0); MANUAL DIFF REQUIRED? YES; MEAN CELL VOLUME 92.4 fl (80-99); MEAN CORPUSCULAR HEMOGLOBIN 31.1 pg (26.0-30.0); MEAN CORPUSCULAR HGB CONC 33.6 pg (28.0-36.0); MEAN PLATELET VOLUME 9.4 fl; MONOCYTE ABSOLUTE 0.6 Th/cmm (0.3-1.0); NEUTROPHILE ABSOLUTE 2.8 Th/cmm (1.8-8.0); RED CELL DISTRIBUTION WIDTH 14.1 % (11.5-20.0)
[2017-10-25 07:45] LABS: PLATELET COUNT 29 Th/cmm (150-400); WHITE BLOOD COUNT 3.8 Th/cmm (4.8-10.8)
[2017-10-25 07:55] LABS: ANION GAP 19.1 (7.0-16.0); BUN - UREA NITROGEN 7 mg/dL (7-25); CALCIUM SERUM 9.4 mg/dL (8.6-10.3); CARBON DIOXIDE 19.6 mEq/L (21.0-31.0); CHLORIDE 98 mEq/L (98-107); CREATININE - SERUM 0.7 mg/dL (0.7-1.3); GFR AFRICAN-AMERICAN > 60.0 ml/min (>90); GFR NON AFRICAN-AMERICAN > 60.0 ml/min; GLUCOSE 94 mg/dL (70-105); POTASSIUM SERUM 3.7 mEq/L (3.5-5.1); SODIUM SERUM 133 mEq/L (136-145)
[2017-10-25 09:58] LABS: BAND NEUTROPHILE 2 % (0-10); BASOPHIL 1 % (0-3); EOSINOPHIL 1 % (0-5); LYMPHOCYTE 4 % (20-50); MONOCYTE 14 % (2-10); NEUTROPHILS 78 % (40-80); PLATELET ESTIMATE DECREASED PLATELETS (NORMAL); TOTAL CELLS COUNTED 100
--- NOTE | 2017-10-25 10:18 | Infectious Disease Prog Note ---
Infectious Disease Subjective - Review of Systems Service Date: 10/25/17 Subjective: No new change no fever. Infectious Disease Objective - Results Result Diagrams: 10/25/17 06:40 10/25/17 06:40 Recent Labs: Laboratory Last Values WBC 3.8 Th/cmm (4.8-10.8) L 10/25/17 06:40 RBC 4.30 Mil/cmm (4.30-5.70) 10/25/17 06:40 Hgb 13.4 gm/dL (12-16) 10/25/17 06:40 Hct 39.8 % (41.0-60) L 10/25/17 06:40 MCV 92.4 fl (80-99) 10/25/17 06:40 MCH 31.1 pg (26.0-30.0) H 10/25/17 06:40 MCHC Differential 33.6 pg (28.0-36.0) 10/25/17 06:40 RDW 14.1 % (11.5-20.0) 10/25/17 06:40 Plt Count 29 Th/cmm (150-400) L* 10/25/17 06:40 MPV 9.4 fl 10/25/17 06:40 Band Neutrophils % 2 % (0-10) 10/25/17 06:40 Neutrophils (Manual) 78 % (40-80) 10/25/17 06:40 Lymphocytes 4 % (20-50) L 10/25/17 06:40 Monocytes 14 % (2-10) H 10/25/17 06:40 Eosinophils 1 % (0-5) 10/25/17 06:40 Basophils 1 % (0-3) 10/25/17 06:40 Platelet Estimate DECREASED PLATELETS (NORMAL) 10/25/17 06:40 PT 10.9 SECONDS (9.5-11.5) 10/23/17 18:35 INR 1.05 (0.5-1.4) 10/23/17 18:35 Sodium 133 mEq/L (136-145) L 10/25/17 06:40 Potassium 3.7 mEq/L (3.5-5.1) 10/25/17 06:40 Chloride 98 mEq/L (98-107) 10/25/17 06:40 Carbon Dioxide 19.6 mEq/L (21.0-31.0) L 10/25/17 06:40 Anion Gap 19.1 (7.0-16.0) H 10/25/17 06:40 BUN 7 mg/dL (7-25) 10/25/17 06:40 Creatinine 0.7 mg/dL (0.7-1.3) 10/25/17 06:40 Est GFR ( Amer) > 60.0 ml/min (>90) 10/25/17 06:40 Est GFR (Non-Af Amer) > 60.0 ml/min 10/25/17 06:40 BUN/Creatinine Ratio 10.0 10/25/17 06:40 Glucose 94 mg/dL (70-105) 10/25/17 06:40 Whole Bld Lactic Acid 2.05 mmol/L (0.60-1.99) H* 10/23/17 21:35 Calcium 9.4 mg/dL (8.6-10.3) 10/25/17 06:40 Total Bilirubin 1.1 mg/dL (0.3-1.0) H 10/23/17 18:35 AST 221 U/L (13-39) H 10/23/17 18:35 ALT 74 U/L (7-52) H 10/23/17 18:35 Alkaline Phosphatase 78 U/L (34-104) 10/23/17 18:35 Creatine Kinase 1091 U/L (30-223) H 10/23/17 18:35 CK-MB (CK-2) 13.6 ng/mL (0.6-6.3) H 10/23/17 18:35 Troponin I 0.01 ng/mL (0.01-0.05) 10/23/17 18:35 B-Natriuretic Peptide < 5.0 pg/mL (5.0-100.0) L 10/23/17 18:35 Total Protein 8.4 gm/dL (6.0-8.3) H 10/23/17 18:35 Albumin 4.7 gm/dL (4.2-5.5) 10/23/17 18:35 Globulin 3.7 gm/dL 10/23/17 18:35 Albumin/Globulin Ratio 1.3 (1.0-1.8) 10/23/17 18:35 Triglycerides 69 mg/dL (<150) 10/23/17 18:35 Cholesterol 236 mg/dL (<200) H 10/23/17 18:35 LDL Cholesterol Direct 131 mg/dL (75-193) 10/23/17 18:35 HDL Cholesterol 89 mg/dL (23-92) 10/23/17 18:35 Amylase 42 U/L (29-103) 10/23/17 18:35 Lipase 38 U/L (11-82) 10/23/17 18:35 Urine Source CLEAN C 10/23/17 19:00 Urine Color YELLOW 10/23/17 19:00 Urine Clarity CLEAR (CLEAR) 10/23/17 19:00 Urine pH 6.5 (4.6 - 8.0) 10/23/17 19:00 Ur Specific [place] <= 1.005 (1.005-1.030) 10/23/17 19:00 Urine Protein 30 mg/dL (NEGATIVE) H 10/23/17 19:00 Urine Glucose (UA) NEGATIVE mg/dL (NEGATIVE) 10/23/17 19:00 Urine Ketones NEGATIVE mg/dL (NEGATIVE) 10/23/17 19:00 Urine Blood SMALL (NEGATIVE) H 10/23/17 19:00 Urine Nitrate NEGATIVE (NEGATIVE) 10/23/17 19:00 Urine Bilirubin NEGATIVE (NEGATIVE) 10/23/17 19:00 Urine Urobilinogen 0.2 E.U./dL (0.2 - 1.0) 10/23/17 19:00 Ur Leukocyte Esterase NEGATIVE (NEGATIVE) 10/23/17 19:00 Urine RBC 0-2 /hpf (0-5) H 10/23/17 19:00 Urine WBC 0-2 /hpf (0-5) 10/23/17 19:00 Ur Epithelial Cells OCCASIONAL /lpf (FEW) 10/23/17 19:00 Urine Bacteria NONE SEEN /hpf (NONE SEEN) 10/23/17 19:00 Urine Opiates Screen NEGATIVE (NEGATIVE) 10/23/17 19:00 Urine Methadone Screen NEGATIVE (NEGATIVE) 10/23/17 19:00 Ur Barbiturates Screen NEGATIVE (NEGATIVE) 10/23/17 19:00 Ur Tricyclics Screen NEGATIVE (NEGATIVE) 10/23/17 19:00 Ur Phencyclidine Scrn NEGATIVE (NEGATIVE) 10/23/17 19:00 Amphetamines Screen NEGATIVE (NEGATIVE) 10/23/17 19:00 U Methamphetamines Scrn NEGATIVE (NEGATIVE) 10/23/17 19:00 U Benzodiazepines Scrn POSITIVE (NEGATIVE) H 10/23/17 19:00 U Cocaine Metab Screen NEGATIVE (NEGATIVE) 10/23/17 19:00 U Cannabinoids Screen NEGATIVE (NEGATIVE) 10/23/17 19:00 Ethyl Alcohol 185 mg/dL (0-10) H 10/24/17 14:40 HIV 1&2 Antibody Screen NEGATIVE (NEG) 10/25/17 06:50 - Physical Exam Vitals and I&O: Vital Signs Temp 99.3 F 10/24/17 10:39 Pulse 78 10/24/17 10:39 Resp 19 10/24/17 18:50 BP 125/69 10/24/17 20:00 Pulse Ox 95 10/24/17 10:39 Active Medications: Current Medications Multivitamins/Minerals 10 ml/Thiamine HCl 100 mg/ Magnesium Sulfate 2 gm/ Folic Acid 1 mg / Sodium Chloride 1,015.2 mls @ 150 mls/hr IV Q24H [facility] Stop: 12/23/17 19:59 Last Admin: 10/24/17 23:24 Dose: 150 mls/hr Levofloxacin (Levaquin Pb) 500 mg in 100 mls @ 100 mls/hr IV Q24HR [facility] Stop: 12/23/17 21:59 Last Admin: 10/24/17 22:20 Dose: 100 mls/hr Dextrose/Sodium Chloride (D5-0.45ns) 1,000 mls @ 75 mls/hr IV .[id number] [facility] Stop: 12/23/17 19:59 Last Admin: 10/24/17 20:13 Dose: 75 mls/hr Lorazepam (Ativan) 1 mg IVP Q6HR PRN; Protocol PRN Reason: Seizures Stop: 12/24/17 02:37 Last Admin: 10/25/17 06:58 Dose: 1 mg Ondansetron HCl (Zofran) 4 mg IV Q4H PRN PRN Reason: Nausea / Vomiting Stop: 12/23/17 18:20 Last Admin: 10/24/17 18:46 Dose: 4 mg General: no acute distress, well developed, well nourished HEENT: atraumatic, normocephalic, PERRLA, EOMI Neck: supple, no thyromegaly Cardiovascular: S1S2, regular Lungs: clear to auscultation bilaterally, clear to percussion Abdomen: soft, no tender, no distended Extremities: no cyanosis, no clubbing, no edema Neurological: awake, alert, oriented Skin: intact Infectious Disease Assmt/Plan - Assessment Assessment: 1. Neutropenia, most likely secondary to cirrhosis. 2. Thrombocytopenia secondary to the cirrhosis. 3. Alcohol intoxication and alcohol abuse. 4. Hepatomegaly, likely secondary to cirrhosis. 5. Anxiety disorder. - Plan Plan: Continue same treatment
--- NOTE | 2017-10-25 11:49 | General Progress Note ---
Subjective - Review of Systems Events since last encounter: no fever no distress Objective - Results Result Diagrams: 10/25/17 06:40 10/25/17 06:40 Recent Labs: Laboratory Last Values WBC 3.8 Th/cmm (4.8-10.8) L 10/25/17 06:40 RBC 4.30 Mil/cmm (4.30-5.70) 10/25/17 06:40 Hgb 13.4 gm/dL (12-16) 10/25/17 06:40 Hct 39.8 % (41.0-60) L 10/25/17 06:40 MCV 92.4 fl (80-99) 10/25/17 06:40 MCH 31.1 pg (26.0-30.0) H 10/25/17 06:40 MCHC Differential 33.6 pg (28.0-36.0) 10/25/17 06:40 RDW 14.1 % (11.5-20.0) 10/25/17 06:40 Plt Count 29 Th/cmm (150-400) L* 10/25/17 06:40 MPV 9.4 fl 10/25/17 06:40 Band Neutrophils % 2 % (0-10) 10/25/17 06:40 Neutrophils (Manual) 78 % (40-80) 10/25/17 06:40 Lymphocytes 4 % (20-50) L 10/25/17 06:40 Monocytes 14 % (2-10) H 10/25/17 06:40 Eosinophils 1 % (0-5) 10/25/17 06:40 Basophils 1 % (0-3) 10/25/17 06:40 Platelet Estimate DECREASED PLATELETS (NORMAL) 10/25/17 06:40 PT 10.9 SECONDS (9.5-11.5) 10/23/17 18:35 INR 1.05 (0.5-1.4) 10/23/17 18:35 Sodium 133 mEq/L (136-145) L 10/25/17 06:40 Potassium 3.7 mEq/L (3.5-5.1) 10/25/17 06:40 Chloride 98 mEq/L (98-107) 10/25/17 06:40 Carbon Dioxide 19.6 mEq/L (21.0-31.0) L 10/25/17 06:40 Anion Gap 19.1 (7.0-16.0) H 10/25/17 06:40 BUN 7 mg/dL (7-25) 10/25/17 06:40 Creatinine 0.7 mg/dL (0.7-1.3) 10/25/17 06:40 Est GFR ( Amer) > 60.0 ml/min (>90) 10/25/17 06:40 Est GFR (Non-Af Amer) > 60.0 ml/min 10/25/17 06:40 BUN/Creatinine Ratio 10.0 10/25/17 06:40 Glucose 94 mg/dL (70-105) 10/25/17 06:40 Whole Bld Lactic Acid 2.05 mmol/L (0.60-1.99) H* 10/23/17 21:35 Calcium 9.4 mg/dL (8.6-10.3) 10/25/17 06:40 Total Bilirubin 1.1 mg/dL (0.3-1.0) H 10/23/17 18:35 AST 221 U/L (13-39) H 10/23/17 18:35 ALT 74 U/L (7-52) H 10/23/17 18:35 Alkaline Phosphatase 78 U/L (34-104) 10/23/17 18:35 Creatine Kinase 1091 U/L (30-223) H 10/23/17 18:35 CK-MB (CK-2) 13.6 ng/mL (0.6-6.3) H 10/23/17 18:35 Troponin I 0.01 ng/mL (0.01-0.05) 10/23/17 18:35 B-Natriuretic Peptide < 5.0 pg/mL (5.0-100.0) L 10/23/17 18:35 Total Protein 8.4 gm/dL (6.0-8.3) H 10/23/17 18:35 Albumin 4.7 gm/dL (4.2-5.5) 10/23/17 18:35 Globulin 3.7 gm/dL 10/23/17 18:35 Albumin/Globulin Ratio 1.3 (1.0-1.8) 10/23/17 18:35 Triglycerides 69 mg/dL (<150) 10/23/17 18:35 Cholesterol 236 mg/dL (<200) H 10/23/17 18:35 LDL Cholesterol Direct 131 mg/dL (75-193) 10/23/17 18:35 HDL Cholesterol 89 mg/dL (23-92) 10/23/17 18:35 Amylase 42 U/L (29-103) 10/23/17 18:35 Lipase 38 U/L (11-82) 10/23/17 18:35 Urine Source CLEAN C 10/23/17 19:00 Urine Color YELLOW 10/23/17 19:00 Urine Clarity CLEAR (CLEAR) 10/23/17 19:00 Urine pH 6.5 (4.6 - 8.0) 10/23/17 19:00 Ur Specific [place] <= 1.005 (1.005-1.030) 10/23/17 19:00 Urine Protein 30 mg/dL (NEGATIVE) H 10/23/17 19:00 Urine Glucose (UA) NEGATIVE mg/dL (NEGATIVE) 10/23/17 19:00 Urine Ketones NEGATIVE mg/dL (NEGATIVE) 10/23/17 19:00 Urine Blood SMALL (NEGATIVE) H 10/23/17 19:00 Urine Nitrate NEGATIVE (NEGATIVE) 10/23/17 19:00 Urine Bilirubin NEGATIVE (NEGATIVE) 10/23/17 19:00 Urine Urobilinogen 0.2 E.U./dL (0.2 - 1.0) 10/23/17 19:00 Ur Leukocyte Esterase NEGATIVE (NEGATIVE) 10/23/17 19:00 Urine RBC 0-2 /hpf (0-5) H 10/23/17 19:00 Urine WBC 0-2 /hpf (0-5) 10/23/17 19:00 Ur Epithelial Cells OCCASIONAL /lpf (FEW) 10/23/17 19:00 Urine Bacteria NONE SEEN /hpf (NONE SEEN) 10/23/17 19:00 Urine Opiates Screen NEGATIVE (NEGATIVE) 10/23/17 19:00 Urine Methadone Screen NEGATIVE (NEGATIVE) 10/23/17 19:00 Ur Barbiturates Screen NEGATIVE (NEGATIVE) 10/23/17 19:00 Ur Tricyclics Screen NEGATIVE (NEGATIVE) 10/23/17 19:00 Ur Phencyclidine Scrn NEGATIVE (NEGATIVE) 10/23/17 19:00 Amphetamines Screen NEGATIVE (NEGATIVE) 10/23/17 19:00 U Methamphetamines Scrn NEGATIVE (NEGATIVE) 10/23/17 19:00 U Benzodiazepines Scrn POSITIVE (NEGATIVE) H 10/23/17 19:00 U Cocaine Metab Screen NEGATIVE (NEGATIVE) 10/23/17 19:00 U Cannabinoids Screen NEGATIVE (NEGATIVE) 10/23/17 19:00 Ethyl Alcohol 185 mg/dL (0-10) H 10/24/17 14:40 HIV 1&2 Antibody Screen NEGATIVE (NEG) 10/25/17 06:50 - Physical Exam Vitals and I&O: Vital Signs Temp 99.3 F 10/24/17 10:39 Pulse 78 10/24/17 10:39 Resp 19 10/24/17 18:50 BP 125/69 10/24/17 20:00 Pulse Ox 95 10/24/17 10:39 Active Medications: Current Medications Chlordiazepoxide (Librium) 50 mg PO TID [facility] Stop: 12/24/17 08:59 Last Admin: 10/25/17 10:33 Dose: 50 mg Multivitamins/Minerals 10 ml/Thiamine HCl 100 mg/ Magnesium Sulfate 2 gm/ Folic Acid 1 mg / Sodium Chloride 1,015.2 mls @ 150 mls/hr IV Q24H [facility] Stop: 12/23/17 19:59 Last Admin: 10/24/17 23:24 Dose: 150 mls/hr Levofloxacin (Levaquin Pb) 500 mg in 100 mls @ 100 mls/hr IV Q24HR [facility] Stop: 12/23/17 21:59 Last Admin: 10/24/17 22:20 Dose: 100 mls/hr Dextrose/Sodium Chloride (D5-0.45ns) 1,000 mls @ 75 mls/hr IV .[id number] [facility] Stop: 12/23/17 19:59 Last Admin: 10/24/17 20:13 Dose: 75 mls/hr Lorazepam (Ativan) 1 mg IVP Q6HR PRN; Protocol PRN Reason: Seizures Stop: 12/24/17 02:37 Last Admin: 10/25/17 06:58 Dose: 1 mg Ondansetron HCl (Zofran) 4 mg IV Q4H PRN PRN Reason: Nausea / Vomiting Stop: 12/23/17 18:20 Last Admin: 10/24/17 18:46 Dose: 4 mg General: No acute distress HEENT: Atraumatic Cardiovascular: Regular rate, Normal S1 Abdomen: Bowel sounds Assessment/Plan - Problem List Patient Problems: All Active Problems Alcohol intoxication (Acute) Anxiety (Acute) F41.9 Hepatomegaly (Acute) R16.0 Neutropenia (Acute) D70.9 Thrombocytopenia (Acute) D69.6 - Plan Plan: cpm
--- NOTE | 2017-10-25 16:51 | Consultation ---
DATE OF CONSULTATION: 10/25/2017 HEMATOLOGY ONCOLOGY CONSULTATION REFERRING PHYSICIAN: Dr. Mendiola. REASON FOR CONSULTATION: Leukopenia and thrombocytopenia. HISTORY OF PRESENT ILLNESS: The patient is a 32-year-old male who is alcoholic and admitted with a high alcohol level and found to have low platelets and low white count, therefore I was asked to evaluate. The patient is admitting that he was drinking and quit and went back to binge drinking and he was a heavily drinking prior to admission. PAST MEDICAL HISTORY: Alcohol abuse. MEDICATIONS: Reviewed. SOCIAL HISTORY: Alcoholic. ALLERGIES: None. PHYSICAL EXAMINATION: GENERAL: The patient is awake, seems to be agitated and shivering in withdrawal. HEENT: Atraumatic. No mucosal lesions. NECK: No lymphadenopathy. CHEST: Good air entry. EXTREMITIES: No edema. NERVOUS SYSTEM: Tremors on the extremities. ABDOMEN: Soft. No guarding or rebound. No bleeding. LABORATORY DATA: White count 3.8, from admission it was 2.2; platelet count today 29, from admission was 43; hemoglobin 13.4. AST and ALT are elevated with AST 221 and ALT 74, creatinine 0.7 and CPK 1091. Alcohol level from admission 625. ASSESSMENT: Leukopenia and thrombocytopenia from bone marrow suppression by the alcohol. The patient had a CT scan of the abdomen, which showed normal size spleen. The mainstay of treatment is folic acid supplementation, thiamine, vitamin and nutritional support. I expect recovery of the bone marrow in the next few days. If there is no bleeding, no transfusion of platelets is required. No treatment of withdrawal is deferred to other physicians. Thank you, Dr. Mendiola, for the opportunity to participate in the care of this interesting case. JOB# [id number]
[2017-10-25] MEDS: Multivitamin Inj 10 ML, Thiamine HCL 100 MG, Magnesium Sulfate 2 GM, Folic Acid 1 MG in... IV SCH (20:00)
--- NOTE | 2017-10-25 21:49 | History & Physical ---
ADMIT DATE: 10/24/2017 HISTORY OF PRESENT ILLNESS: This is a 32-year-old who has had recurrent visits to the ER, essentially has been drinking very heavily. His alcohol level is very high and his initial white count was 2200. The patient's CPK was also high. The patient was admitted for alcoholic intoxication, rhabdomyolysis, and severe leukopenia. PAST MEDICAL HISTORY: History of alcohol abuse. MEDICATIONS: See the medication reconciliation sheet. The patient had no fever, no chills, no rigors, no other problem. The patient is complaining of tremors and severe anxiety. PHYSICAL EXAMINATION: HEAD: Normal. EYES, NOSE, THROAT: Normal. LUNGS: Clear. CARDIOVASCULAR SYSTEM: S1, S2 heard. ABDOMEN: Soft. Bowel sounds are heard. CENTRAL NERVOUS SYSTEM: Grossly normal. LABORATORY DATA: His white count was 2200, hemoglobin 13.5. His BUN was 4, creatinine 0.6. CPK is 1091. DIAGNOSES: 1. Alcoholic intoxication. 2. History of alcohol abuse. 3. Thrombocytopenia, secondary to cirrhosis. 4. Neutropenia and hepatomegaly secondary to cirrhosis, anxiety disorder. The patient is going to be continued on banana bag and Librium and will also have Hematology consult. I will follow the patient. JOB# [id number]
[2017-10-25] MEDS: Levofloxacin 500mg/100mL 500 MG/100 ML BAG IV SCH (22:23)
[2017-10-26 06:34] LABS: % BASOPHILS 0.8 % (0.0-2.0); % EOSINOPHILS 1.7 % (0.0-5.0); % LYMPHOCYTES 31.6 % (20.0-50.0); % MONOCYTES 14.6 % (2.0-10.0); % NEUTROPHILS 51.3 % (40.0-80.0); EOSINOPHILE ABSOLUTE 0.1 Th/cmm (0.1-0.4); HEMATOCRIT 39.6 % (41.0-60); HEMOGLOBIN 13.5 gm/dL (12-16); MEAN CELL VOLUME 92.8 fl (80-99); MEAN CORPUSCULAR HEMOGLOBIN 31.7 pg (26.0-30.0); MEAN CORPUSCULAR HGB CONC 34.1 pg (28.0-36.0); MEAN PLATELET VOLUME 9.7 fl; MONOCYTE ABSOLUTE 0.5 Th/cmm (0.3-1.0); NEUTROPHILE ABSOLUTE 1.7 Th/cmm (1.8-8.0); RED BLOOD COUNT 4.26 Mil/cmm (4.30-5.70); RED CELL DISTRIBUTION WIDTH 13.7 % (11.5-20.0)
[2017-10-26 06:44] LABS: PLATELET COUNT 26 Th/cmm (150-400); WHITE BLOOD COUNT 3.3 Th/cmm (4.8-10.8)
--- NOTE | 2017-10-26 08:42 | Diagnostic Imaging Report ---
Ultrasound abdomen HISTORY: Pancytopenia COMPARISON: CT abdomen and pelvis on 10/24/2017 Technique: Sonography of the abdomen was performed in multiple planes. FINDINGS: Exam is limited due to bowel gas. The liver demonstrates mild increased echogenicity and measures 20.7 cm. The liver margins are not well-defined however, no evidence of focal lesions. No evidence of gallstones, gallbladder wall thickening or common bile duct dilatation. The CBD measures 2 mm. Assessment of the pancreas is limited due to bowel gas. The right kidney measures 12.4 x 5.1 cm. The left kidney measures 12.2 x 5.9 cm. No evidence of focal lesions or hydronephrosis. The spleen measures 12.9 x 5.5 cm. IMPRESSION: Borderline splenomegaly with spleen measuring 12.9 x 5.5 cm. Hepatomegaly with mild increased echogenicity which may be due to underlying fatty infiltration. Slight increase bilateral kidney size is, nonspecific. No evidence of hydronephrosis.
[2017-10-26 11:17] LABS: HEP A AB IGM Negative (Negative); HEP B CORE IGM Negative (Negative); HEP B SURFACE AG QL Negative (Negative); HEP C ANTIBODY 0.1 s/co ratio (0.0-0.9)
--- NOTE | 2017-10-26 15:58 | General Progress Note ---
Subjective - Review of Systems Service Date: 10/26/17 Subjective: less anxious Objective - Results Result Diagrams: 10/26/17 05:40 10/25/17 06:40 Recent Labs: Laboratory Last Values WBC 3.3 Th/cmm (4.8-10.8) L 10/26/17 05:40 RBC 4.26 Mil/cmm (4.30-5.70) L 10/26/17 05:40 Hgb 13.5 gm/dL (12-16) 10/26/17 05:40 Hct 39.6 % (41.0-60) L 10/26/17 05:40 MCV 92.8 fl (80-99) 10/26/17 05:40 MCH 31.7 pg (26.0-30.0) H 10/26/17 05:40 MCHC Differential 34.1 pg (28.0-36.0) 10/26/17 05:40 RDW 13.7 % (11.5-20.0) 10/26/17 05:40 Plt Count 26 Th/cmm (150-400) L* 10/26/17 05:40 MPV 9.7 fl 10/26/17 05:40 Neutrophils % 51.3 % (40.0-80.0) 10/26/17 05:40 Band Neutrophils % 2 % (0-10) 10/25/17 06:40 Lymphocytes % 31.6 % (20.0-50.0) 10/26/17 05:40 Monocytes % 14.6 % (2.0-10.0) H 10/26/17 05:40 Eosinophils % 1.7 % (0.0-5.0) 10/26/17 05:40 Basophils % 0.8 % (0.0-2.0) 10/26/17 05:40 Neutrophils (Manual) 78 % (40-80) 10/25/17 06:40 Lymphocytes 4 % (20-50) L 10/25/17 06:40 Monocytes 14 % (2-10) H 10/25/17 06:40 Eosinophils 1 % (0-5) 10/25/17 06:40 Basophils 1 % (0-3) 10/25/17 06:40 Platelet Estimate DECREASED PLATELETS (NORMAL) 10/25/17 06:40 PT 10.9 SECONDS (9.5-11.5) 10/23/17 18:35 INR 1.05 (0.5-1.4) 10/23/17 18:35 Sodium 133 mEq/L (136-145) L 10/25/17 06:40 Potassium 3.7 mEq/L (3.5-5.1) 10/25/17 06:40 Chloride 98 mEq/L (98-107) 10/25/17 06:40 Carbon Dioxide 19.6 mEq/L (21.0-31.0) L 10/25/17 06:40 Anion Gap 19.1 (7.0-16.0) H 10/25/17 06:40 BUN 7 mg/dL (7-25) 10/25/17 06:40 Creatinine 0.7 mg/dL (0.7-1.3) 10/25/17 06:40 Est GFR ( Amer) > 60.0 ml/min (>90) 10/25/17 06:40 Est GFR (Non-Af Amer) > 60.0 ml/min 10/25/17 06:40 BUN/Creatinine Ratio 10.0 10/25/17 06:40 Glucose 94 mg/dL (70-105) 10/25/17 06:40 Whole Bld Lactic Acid 2.05 mmol/L (0.60-1.99) H* 10/23/17 21:35 Calcium 9.4 mg/dL (8.6-10.3) 10/25/17 06:40 Total Bilirubin 1.1 mg/dL (0.3-1.0) H 10/23/17 18:35 AST 221 U/L (13-39) H 10/23/17 18:35 ALT 74 U/L (7-52) H 10/23/17 18:35 Alkaline Phosphatase 78 U/L (34-104) 10/23/17 18:35 Creatine Kinase 1091 U/L (30-223) H 10/23/17 18:35 CK-MB (CK-2) 13.6 ng/mL (0.6-6.3) H 10/23/17 18:35 Troponin I 0.01 ng/mL (0.01-0.05) 10/23/17 18:35 B-Natriuretic Peptide < 5.0 pg/mL (5.0-100.0) L 10/23/17 18:35 Total Protein 8.4 gm/dL (6.0-8.3) H 10/23/17 18:35 Albumin 4.7 gm/dL (4.2-5.5) 10/23/17 18:35 Globulin 3.7 gm/dL 10/23/17 18:35 Albumin/Globulin Ratio 1.3 (1.0-1.8) 10/23/17 18:35 Triglycerides 69 mg/dL (<150) 10/23/17 18:35 Cholesterol 236 mg/dL (<200) H 10/23/17 18:35 LDL Cholesterol Direct 131 mg/dL (75-193) 10/23/17 18:35 HDL Cholesterol 89 mg/dL (23-92) 10/23/17 18:35 Amylase 42 U/L (29-103) 10/23/17 18:35 Lipase 38 U/L (11-82) 10/23/17 18:35 Urine Source CLEAN C 10/23/17 19:00 Urine Color YELLOW 10/23/17 19:00 Urine Clarity CLEAR (CLEAR) 10/23/17 19:00 Urine pH 6.5 (4.6 - 8.0) 10/23/17 19:00 Ur Specific [place] <= 1.005 (1.005-1.030) 10/23/17 19:00 Urine Protein 30 mg/dL (NEGATIVE) H 10/23/17 19:00 Urine Glucose (UA) NEGATIVE mg/dL (NEGATIVE) 10/23/17 19:00 Urine Ketones NEGATIVE mg/dL (NEGATIVE) 10/23/17 19:00 Urine Blood SMALL (NEGATIVE) H 10/23/17 19:00 Urine Nitrate NEGATIVE (NEGATIVE) 10/23/17 19:00 Urine Bilirubin NEGATIVE (NEGATIVE) 10/23/17 19:00 Urine Urobilinogen 0.2 E.U./dL (0.2 - 1.0) 10/23/17 19:00 Ur Leukocyte Esterase NEGATIVE (NEGATIVE) 10/23/17 19:00 Urine RBC 0-2 /hpf (0-5) H 10/23/17 19:00 Urine WBC 0-2 /hpf (0-5) 10/23/17 19:00 Ur Epithelial Cells OCCASIONAL /lpf (FEW) 10/23/17 19:00 Urine Bacteria NONE SEEN /hpf (NONE SEEN) 10/23/17 19:00 Urine Opiates Screen NEGATIVE (NEGATIVE) 10/23/17 19:00 Urine Methadone Screen NEGATIVE (NEGATIVE) 10/23/17 19:00 Ur Barbiturates Screen NEGATIVE (NEGATIVE) 10/23/17 19:00 Ur Tricyclics Screen NEGATIVE (NEGATIVE) 10/23/17 19:00 Ur Phencyclidine Scrn NEGATIVE (NEGATIVE) 10/23/17 19:00 Amphetamines Screen NEGATIVE (NEGATIVE) 10/23/17 19:00 U Methamphetamines Scrn NEGATIVE (NEGATIVE) 10/23/17 19:00 U Benzodiazepines Scrn POSITIVE (NEGATIVE) H 10/23/17 19:00 U Cocaine Metab Screen NEGATIVE (NEGATIVE) 10/23/17 19:00 U Cannabinoids Screen NEGATIVE (NEGATIVE) 10/23/17 19:00 Ethyl Alcohol 185 mg/dL (0-10) H 10/24/17 14:40 Hepatitis A IgM Ab Negative (Negative) 10/25/17 06:50 Hep Bs Antigen Negative (Negative) 10/25/17 06:50 Hep B Core IgM Ab Negative (Negative) 10/25/17 06:50 Hepatitis C Antibody 0.1 s/co ratio (0.0-0.9) 10/25/17 06:50 HIV 1&2 Antibody Screen NEGATIVE (NEG) 10/25/17 06:50 - Physical Exam Vitals and I&O: Vital Signs Temp 97.5 F 10/26/17 15:43 Pulse 79 10/26/17 15:43 Resp 18 10/26/17 15:43 BP 112/80 10/26/17 15:43 Pulse Ox 99 10/26/17 15:43 Intake & Output 10/25/17 10/26/17 10/26/17 18:59 06:59 18:59 Intake Total 650 240 Output Total 1050 600 Balance -400 -360 Weight (lbs) 81.873 kg 81.873 kg Intake: Oral 650 240 Output: Urine 1050 600 Other: # Bowel Movements 0 0 Stool Characteristics Soft Formed Weight Source Bedscale Bedscale Active Medications: Current Medications Chlordiazepoxide (Librium) 50 mg PO TID [facility] Stop: 12/24/17 08:59 Last Admin: 10/26/17 14:07 Dose: 50 mg Multivitamins/Minerals 10 ml/Thiamine HCl 100 mg/ Magnesium Sulfate 2 gm/ Folic Acid 1 mg / Sodium Chloride 1,015.2 mls @ 150 mls/hr IV Q24H [facility] Stop: 12/23/17 19:59 Last Admin: 10/25/17 20:00 Dose: 150 mls/hr Levofloxacin (Levaquin Pb) 500 mg in 100 mls @ 100 mls/hr IV Q24HR [facility] Stop: 12/23/17 21:59 Last Admin: 10/25/17 22:23 Dose: 100 mls/hr Dextrose/Sodium Chloride (D5-0.45ns) 1,000 mls @ 75 mls/hr IV .[id number] [facility] Stop: 12/23/17 19:59 Last Admin: 10/24/17 20:13 Dose: 75 mls/hr Lorazepam (Ativan) 1 mg IVP Q6HR PRN; Protocol PRN Reason: Seizures Stop: 12/24/17 02:37 Last Admin: 10/25/17 22:00 Dose: 1 mg Ondansetron HCl (Zofran) 4 mg IV Q4H PRN PRN Reason: Nausea / Vomiting Stop: 12/23/17 18:20 Last Admin: 10/24/17 18:46 Dose: 4 mg General: Alert, No acute distress HEENT: Atraumatic Cardiovascular: Regular rate, Normal S1 Abdomen: Bowel sounds Skin: Other (no bleeding) Assessment/Plan - Problem List Patient Problems: All Active Problems Alcohol intoxication (Acute) Anxiety (Acute) F41.9 Hepatomegaly (Acute) R16.0 Neutropenia (Acute) D70.9 Thrombocytopenia (Acute) D69.6 - Assessment Assessment: * 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
[2017-10-26] MEDS: D5-0.45NS 1,000 ML IV SCH (17:10)
[2017-10-26] MEDS: Multivitamin Inj 10 ML, Thiamine HCL 100 MG, Magnesium Sulfate 2 GM, Folic Acid 1 MG in... IV SCH (20:00)
[2017-10-26] MEDS: Levofloxacin 500mg/100mL 500 MG/100 ML BAG IV SCH (21:53)
--- NOTE | 2017-10-27 01:59 | Infectious Disease Prog Note ---
Infectious Disease Subjective - Review of Systems Service Date: 10/26/17 Subjective: No new change no fever. Infectious Disease Objective - Results Result Diagrams: 10/26/17 05:40 10/25/17 06:40 Recent Labs: Laboratory Last Values WBC 3.3 Th/cmm (4.8-10.8) L 10/26/17 05:40 RBC 4.26 Mil/cmm (4.30-5.70) L 10/26/17 05:40 Hgb 13.5 gm/dL (12-16) 10/26/17 05:40 Hct 39.6 % (41.0-60) L 10/26/17 05:40 MCV 92.8 fl (80-99) 10/26/17 05:40 MCH 31.7 pg (26.0-30.0) H 10/26/17 05:40 MCHC Differential 34.1 pg (28.0-36.0) 10/26/17 05:40 RDW 13.7 % (11.5-20.0) 10/26/17 05:40 Plt Count 26 Th/cmm (150-400) L* 10/26/17 05:40 MPV 9.7 fl 10/26/17 05:40 Neutrophils % 51.3 % (40.0-80.0) 10/26/17 05:40 Band Neutrophils % 2 % (0-10) 10/25/17 06:40 Lymphocytes % 31.6 % (20.0-50.0) 10/26/17 05:40 Monocytes % 14.6 % (2.0-10.0) H 10/26/17 05:40 Eosinophils % 1.7 % (0.0-5.0) 10/26/17 05:40 Basophils % 0.8 % (0.0-2.0) 10/26/17 05:40 Neutrophils (Manual) 78 % (40-80) 10/25/17 06:40 Lymphocytes 4 % (20-50) L 10/25/17 06:40 Monocytes 14 % (2-10) H 10/25/17 06:40 Eosinophils 1 % (0-5) 10/25/17 06:40 Basophils 1 % (0-3) 10/25/17 06:40 Platelet Estimate DECREASED PLATELETS (NORMAL) 10/25/17 06:40 PT 10.9 SECONDS (9.5-11.5) 10/23/17 18:35 INR 1.05 (0.5-1.4) 10/23/17 18:35 Sodium 133 mEq/L (136-145) L 10/25/17 06:40 Potassium 3.7 mEq/L (3.5-5.1) 10/25/17 06:40 Chloride 98 mEq/L (98-107) 10/25/17 06:40 Carbon Dioxide 19.6 mEq/L (21.0-31.0) L 10/25/17 06:40 Anion Gap 19.1 (7.0-16.0) H 10/25/17 06:40 BUN 7 mg/dL (7-25) 10/25/17 06:40 Creatinine 0.7 mg/dL (0.7-1.3) 10/25/17 06:40 Est GFR ( Amer) > 60.0 ml/min (>90) 10/25/17 06:40 Est GFR (Non-Af Amer) > 60.0 ml/min 10/25/17 06:40 BUN/Creatinine Ratio 10.0 10/25/17 06:40 Glucose 94 mg/dL (70-105) 10/25/17 06:40 Whole Bld Lactic Acid 2.05 mmol/L (0.60-1.99) H* 10/23/17 21:35 Calcium 9.4 mg/dL (8.6-10.3) 10/25/17 06:40 Total Bilirubin 1.1 mg/dL (0.3-1.0) H 10/23/17 18:35 AST 221 U/L (13-39) H 10/23/17 18:35 ALT 74 U/L (7-52) H 10/23/17 18:35 Alkaline Phosphatase 78 U/L (34-104) 10/23/17 18:35 Creatine Kinase 1091 U/L (30-223) H 10/23/17 18:35 CK-MB (CK-2) 13.6 ng/mL (0.6-6.3) H 10/23/17 18:35 Troponin I 0.01 ng/mL (0.01-0.05) 10/23/17 18:35 B-Natriuretic Peptide < 5.0 pg/mL (5.0-100.0) L 10/23/17 18:35 Total Protein 8.4 gm/dL (6.0-8.3) H 10/23/17 18:35 Albumin 4.7 gm/dL (4.2-5.5) 10/23/17 18:35 Globulin 3.7 gm/dL 10/23/17 18:35 Albumin/Globulin Ratio 1.3 (1.0-1.8) 10/23/17 18:35 Triglycerides 69 mg/dL (<150) 10/23/17 18:35 Cholesterol 236 mg/dL (<200) H 10/23/17 18:35 LDL Cholesterol Direct 131 mg/dL (75-193) 10/23/17 18:35 HDL Cholesterol 89 mg/dL (23-92) 10/23/17 18:35 Amylase 42 U/L (29-103) 10/23/17 18:35 Lipase 38 U/L (11-82) 10/23/17 18:35 Urine Source CLEAN C 10/23/17 19:00 Urine Color YELLOW 10/23/17 19:00 Urine Clarity CLEAR (CLEAR) 10/23/17 19:00 Urine pH 6.5 (4.6 - 8.0) 10/23/17 19:00 Ur Specific [place] <= 1.005 (1.005-1.030) 10/23/17 19:00 Urine Protein 30 mg/dL (NEGATIVE) H 10/23/17 19:00 Urine Glucose (UA) NEGATIVE mg/dL (NEGATIVE) 10/23/17 19:00 Urine Ketones NEGATIVE mg/dL (NEGATIVE) 10/23/17 19:00 Urine Blood SMALL (NEGATIVE) H 10/23/17 19:00 Urine Nitrate NEGATIVE (NEGATIVE) 10/23/17 19:00 Urine Bilirubin NEGATIVE (NEGATIVE) 10/23/17 19:00 Urine Urobilinogen 0.2 E.U./dL (0.2 - 1.0) 10/23/17 19:00 Ur Leukocyte Esterase NEGATIVE (NEGATIVE) 10/23/17 19:00 Urine RBC 0-2 /hpf (0-5) H 10/23/17 19:00 Urine WBC 0-2 /hpf (0-5) 10/23/17 19:00 Ur Epithelial Cells OCCASIONAL /lpf (FEW) 10/23/17 19:00 Urine Bacteria NONE SEEN /hpf (NONE SEEN) 10/23/17 19:00 Urine Opiates Screen NEGATIVE (NEGATIVE) 10/23/17 19:00 Urine Methadone Screen NEGATIVE (NEGATIVE) 10/23/17 19:00 Ur Barbiturates Screen NEGATIVE (NEGATIVE) 10/23/17 19:00 Ur Tricyclics Screen NEGATIVE (NEGATIVE) 10/23/17 19:00 Ur Phencyclidine Scrn NEGATIVE (NEGATIVE) 10/23/17 19:00 Amphetamines Screen NEGATIVE (NEGATIVE) 10/23/17 19:00 U Methamphetamines Scrn NEGATIVE (NEGATIVE) 10/23/17 19:00 U Benzodiazepines Scrn POSITIVE (NEGATIVE) H 10/23/17 19:00 U Cocaine Metab Screen NEGATIVE (NEGATIVE) 10/23/17 19:00 U Cannabinoids Screen NEGATIVE (NEGATIVE) 10/23/17 19:00 Ethyl Alcohol 185 mg/dL (0-10) H 10/24/17 14:40 Hepatitis A IgM Ab Negative (Negative) 10/25/17 06:50 Hep Bs Antigen Negative (Negative) 10/25/17 06:50 Hep B Core IgM Ab Negative (Negative) 10/25/17 06:50 Hepatitis C Antibody 0.1 s/co ratio (0.0-0.9) 10/25/17 06:50 HIV 1&2 Antibody Screen NEGATIVE (NEG) 10/25/17 06:50 - Physical Exam Vitals and I&O: Vital Signs Temp 98.3 F 10/27/17 00:00 Pulse 91 10/27/17 00:00 Resp 19 10/27/17 00:00 BP 112/70 10/27/17 00:00 Pulse Ox 97 10/27/17 00:00 Intake & Output 10/26/17 10/26/17 10/27/17 06:59 18:59 06:59 Intake Total 1355.2 1250 Output Total 600 Balance 755.2 1250 Weight (lbs) 81.873 kg 81.783 kg Intake: Intake, IV Amount 1115.2 Levofloxacin 500mg/100mL 100 500 mg In 100 ml @ 100 mls/hr IV Q24HR [facility] Rx#: [id number] Multivitamin Inj 10 ml 1015.2 Thiamine HCL 100 mg Magnesium Sulfate 2 gm Folic Acid 1 mg In Sodium Chloride 0.9% 1,000 ml @ 150 mls/hr IV Q24H [facility] Rx#:[id number] Oral 240 1250 Output: Urine 600 Other: # Voids 4 # Bowel Movements 0 1 Stool Characteristics Soft Formed Weight Source Bedscale Bedscale Active Medications: Current Medications Chlordiazepoxide (Librium) 50 mg PO TID [facility] Stop: 12/24/17 08:59 Last Admin: 10/26/17 21:00 Dose: 50 mg Multivitamins/Minerals 10 ml/Thiamine HCl 100 mg/ Magnesium Sulfate 2 gm/ Folic Acid 1 mg / Sodium Chloride 1,015.2 mls @ 150 mls/hr IV Q24H [facility] Stop: 12/23/17 19:59 Last Admin: 10/26/17 20:00 Dose: 150 mls/hr Levofloxacin (Levaquin Pb) 500 mg in 100 mls @ 100 mls/hr IV Q24HR [facility] Stop: 12/23/17 21:59 Last Admin: 10/26/17 21:53 Dose: 100 mls/hr Dextrose/Sodium Chloride (D5-0.45ns) 1,000 mls @ 75 mls/hr IV .[id number] [facility] Stop: 12/23/17 19:59 Last Admin: 10/26/17 17:10 Dose: 75 mls/hr Lorazepam (Ativan) 1 mg IVP Q6HR PRN; Protocol PRN Reason: Seizures Stop: 12/24/17 02:37 Last Admin: 10/26/17 21:52 Dose: 1 mg Ondansetron HCl (Zofran) 4 mg IV Q4H PRN PRN Reason: Nausea / Vomiting Stop: 12/23/17 18:20 Last Admin: 10/24/17 18:46 Dose: 4 mg General: no acute distress, well nourished HEENT: atraumatic, normocephalic, PERRLA, EOMI Neck: supple, no thyromegaly Cardiovascular: S1S2, regular Lungs: clear to auscultation bilaterally, clear to percussion Abdomen: soft, no tender, no distended, no mass Extremities: no cyanosis, no clubbing, no edema Neurological: awake, alert, oriented Skin: intact Infectious Disease Assmt/Plan - Problem List Patient Problems: All Active Problems Alcohol intoxication (Acute) Anxiety (Acute) F41.9 Hepatomegaly (Acute) R16.0 Neutropenia (Acute) D70.9 Thrombocytopenia (Acute) D69.6 - Assessment Assessment: 1. Neutropenia, most likely secondary to cirrhosis. 2. Thrombocytopenia secondary to the cirrhosis. 3. Alcohol intoxication and alcohol abuse. 4. Hepatomegaly, likely secondary to cirrhosis. 5. Anxiety disorder. - Plan Plan: Continue same treatment
[2017-10-27 07:24] LABS: HEMATOCRIT 38.9 % (41.0-60); HEMOGLOBIN 13.4 gm/dL (12-16); MEAN CELL VOLUME 93.4 fl (80-99); MEAN CORPUSCULAR HEMOGLOBIN 32.2 pg (26.0-30.0); MEAN CORPUSCULAR HGB CONC 34.5 pg (28.0-36.0); PLATELET COUNT 40 Th/cmm (150-400); RED BLOOD COUNT 4.16 Mil/cmm (4.30-5.70); RED CELL DISTRIBUTION WIDTH 13.7 % (11.5-20.0); WHITE BLOOD COUNT 4.9 Th/cmm (4.8-10.8)
[2017-10-27 07:36] LABS: MANUAL DIFF REQUIRED? YES
[2017-10-27 07:38] LABS: INR 1.11 (0.5-1.4); PROTHROMBIN TIME (TEST) 11.6 SECONDS (9.5-11.5)
[2017-10-27 08:16] LABS: ANION GAP 13.1 (7.0-16.0); BUN - UREA NITROGEN 6 mg/dL (7-25); CALCIUM SERUM 9.7 mg/dL (8.6-10.3); CARBON DIOXIDE 24.2 mEq/L (21.0-31.0); CHLORIDE 101 mEq/L (98-107); CREATININE - SERUM 0.7 mg/dL (0.7-1.3); GFR AFRICAN-AMERICAN > 60.0 ml/min (>90); GFR NON AFRICAN-AMERICAN > 60.0 ml/min; GLUCOSE 98 mg/dL (70-105); POTASSIUM SERUM 3.3 mEq/L (3.5-5.1); SODIUM SERUM 135 mEq/L (136-145)
[2017-10-27 08:17] LABS: PLATELET ESTIMATE DECREASED PLATELETS (NORMAL)
== END 2017-10-27 10:30 | disposition left against medical advice (07) | DRG 720 ==
LOC: ER 18:14 → MSI 10-24 16:20
PROVIDERS: ADMIT Internal Medicine; ATTEND Internal Medicine
DX: A41.9 Sepsis, unspecified organism (principal); G92 Toxic encephalopathy; D69.6 Thrombocytopenia, unspecified; M62.82 Rhabdomyolysis; D70.9 Neutropenia, unspecified; R16.0 Hepatomegaly, not elsewhere classified; K70.30 Alcoholic cirrhosis of liver without ascites; F10.129 Alcohol abuse with intoxication, unspecified; Y90.8 Blood alcohol level of 240 mg/100 ml or more; F41.9 Anxiety disorder, unspecified; Z53.21 Procedure and treatment not carried out due to patient leaving prior to being seen by health care provider; Z71.89 Other specified counseling
CPT/HCPCS: 36415-UA; 70450-TC; 72125-TC; 73130-TC-RT; 76700-TC; 80048-TC; 80053-TC; 80061-TC; 80074-90; 80307; 80320-TC; 81001-TC; 82150-TC; 82550-TC; 82553; 83605; 83690-TC; 83880-TC; 84484-TC; 85007-TC; 85025-TC; 85027-TC; 85610-TC; 86703-TC; 93005; 94760; J1956; J2060; J2405; J3411; J3475; J7030; Q0162; X6226; X6598; Z7610